=== PATIENT | female | born 1980 | race Two or more races ===

== ENCOUNTER 2016-08-05 17:46 | Inpatient (IN) | payer MEDICAID ==
[~2016-08-05] VITALS: Ht 162.6 cm; Wt 111.6 kg
[~2016-08-05 17:46] MED LIST: ATI0.5 PO; CIPRO500 MG PO; LEXAPRO10 MG PO; NAPROXEN500 MG PO
[2016-08-05 20:10] LABS: PLATELET COUNT 335 x10^3mcL (130-400)
[2016-08-05 20:14] LABS: RED CELL DISTRIBUTION WIDTH 17.7 % (11.5-14.5)
[2016-08-05 20:27] LABS: CALCIUM 8.8 mg/dL (8.5-10.1); CARBON DIOXIDE 29.7 mmol/L (21-32); CHLORIDE SERUM 104 mmol/L (98-107); CREATININE SERUM 0.6 mg/dL (0.6-1.0); GFR1 > 60 mL/min; GLUCOSE SERUM 131 mg/dL (74-106); POTASSIUM SERUM 3.5 mmol/L (3.5-5.1); SODIUM SERUM 139 mmol/L (136-145)
[2016-08-05 20:32] LABS: ALBUMIN 3.1 g/dL (3.4-5.0); ALKALINE PHOSPHATASE 83 U/L (46-116); ALT/SGPT 17 U/L (14-59); AST/SGOT 10 U/L (15-37); BILIRUBIN TOTAL 0.2 mg/dL (0.20-1.00); MAGNESIUM 1.9 mg/dL (1.8-2.4); TOTAL PROTEIN, SERUM 7.1 g/dL (6.4-8.2)
[2016-08-05 21:38] LABS: MONOCYTE 6 % (0-7); PLATELET MORPHOLOGY PLATELETS NORMAL; SEGMENTED NEUTROPHILS 68 % (37-75)
[2016-08-05 21:40] VITALS: BP 124/60
[2016-08-05 23:19] LABS: T3 TOTAL 1.19 ng/mL
[2016-08-05 23:32] LABS: PHOSPHOROUS 4.4 mg/dL (2.5-4.9)
[2016-08-05 23:37] LABS: CHOLESTEROL/HDL RATIO 2.4
[2016-08-05 23:46] LABS: FREE T4 1.04 ng/dL (0.76-1.46); FREE THYROXINE INDEX 2.4 ug/dL (1.4-4.5); T4(THYROXINE) 7.6 ug/dL (4.7-13.3)
[2016-08-06 05:20] VITALS: BP 100/68
[2016-08-06 06:22] LABS: CALCIUM 8.8 mg/dL (8.5-10.1); CARBON DIOXIDE 26.8 mmol/L (21-32); CHLORIDE SERUM 110 mmol/L (98-107); CREATININE SERUM 0.6 mg/dL (0.6-1.0); GFR1 > 60 mL/min; GLUCOSE SERUM 95 mg/dL (74-106); POTASSIUM SERUM 4.7 mmol/L (3.5-5.1); SODIUM SERUM 144 mmol/L (136-145)
[2016-08-06 06:26] LABS: BASOPHIL % 0.2 % (0-2); PLATELET COUNT 303 x10^3mcL (130-400)
[2016-08-06 06:38] LABS: RED CELL DISTRIBUTION WIDTH 17.9 % (11.5-14.5)
[2016-08-06 06:39] LABS: rbc morphology (normal/abnorm) ABNORMAL (NORMAL)
[2016-08-06 07:37] LABS: TOTAL IRON BINDING CAPACITY 342 ug/dL (250-450)
[2016-08-06 07:38] LABS: RED BLOOD CELLS 4.44 M/mm3 (4.10-5.10)
[2016-08-06 07:39] LABS: IRON 27 ug/dL (50-170)
[2016-08-06 09:28] VITALS: BP 90/57
[2016-08-06 13:11] VITALS: BP 110/76
[2016-08-06 16:57] VITALS: BP 112/76
[2016-08-06 21:29] VITALS: BP 127/49; BP 130/64
[2016-08-06 22:55] LABS: UA SPECIFIC GRAVITY 1.025 (1.005-1.035); microscopic required? YES; urine erythrocyte NEGATIVE (NEGATIVE)
[2016-08-07 06:00] VITALS: BP 104/53
[2016-08-07] MEDS ORDERED: CIPRO500 MG PO (07:29)
[2016-08-07] MEDS ORDERED: LAC PO (07:29)
[2016-08-07] MEDS ORDERED: PHARMASSURE VI500 MG PO (07:34)
[2016-08-07] MEDS ORDERED: FERROUS SULFAT325 M2 PO (07:35)
[2016-08-07] MEDS ORDERED: PEPCID20 MG PO (07:36)
[2016-08-07] MEDS ORDERED: IBUPROFEN400 MG PO (07:40)
[2016-08-07] MEDS ORDERED: XANAX0.25 MG PO (07:47)
[2016-08-07 09:39] VITALS: BP 100/64
[2016-08-07] MEDS ORDERED: DIF100 PO (09:56)
[2016-08-07 10:38] VITALS: BP 100/64
== END 2016-08-07 11:49 | disposition home or self-care (01) | DRG 203 ==
LOC: ED 17:46 → DU 20:53
PROVIDERS: Emergency Medicine; ADMIT Family Medicine
DX: M94.0 Chondrocostal junction syndrome [Tietze] (principal); N17.0 Acute kidney failure with tubular necrosis; N39.0 Urinary tract infection, site not specified; F41.9 Anxiety disorder, unspecified; E44.0 Moderate protein-calorie malnutrition; D50.9 Iron deficiency anemia, unspecified; E66.01 Morbid (severe) obesity due to excess calories; Z68.41 Body mass index [BMI] 40.0-44.9, adult
CPT/HCPCS: 80307; 83880; 84439; C9113; J0696; J2060; J2270; J7030; Q0092

== ENCOUNTER 2017-03-03 20:25 | Emergency (ER) | payer MEDICAID ==
[~2017-03-03 20:25] MED LIST changes: +DIF100 PO; +FERROUS SULFAT325 M2 PO; +IBUPROFEN400 MG PO; +LAC PO; +PEPCID20 MG PO; +PHARMASSURE VI500 MG PO; +XANAX0.25 MG PO
[2017-03-03 23:12] VITALS: BP 117/77
== END 2017-03-03 23:01 | disposition home or self-care (01) ==
LOC: ED 20:25
DX: G43.909 Migraine, unspecified, not intractable, without status migrainosus (principal)
CPT/HCPCS: J1200; J2765; J3490; J7030

== ENCOUNTER 2019-01-03 20:15 | Inpatient (IN) | payer OTHER ==
[~2019-01-03] VITALS: Ht 160 cm; Wt 107.1 kg
[2019-01-03 20:19] VITALS: Ht 160 cm; Wt 107.1 kg
--- NOTE | 2019-01-03 20:21 | NUR ---
EKG IN PROGRESS IN TRIAGE
[2019-01-03 21:19] LABS: BASOPHIL % 0.4 % (0-2); PLATELET COUNT 296 x10^3mcL (130-400)
[2019-01-03 21:22] LABS: RED CELL DISTRIBUTION WIDTH 19.3 % (11.5-14.5)
[2019-01-03 21:25] LABS: CALCIUM 8.5 mg/dL (8.5-10.1); CARBON DIOXIDE 24.3 mmol/L (21-32); CHLORIDE SERUM 104 mmol/L (98-107); CREATININE SERUM 0.8 mg/dL (0.6-1.0); GFR1 > 60 mL/min; GLUCOSE SERUM 107 mg/dL (74-106); POTASSIUM SERUM 3.7 mmol/L (3.5-5.1); SODIUM SERUM 142 mmol/L (136-145)
[2019-01-03 21:29] LABS: ALKALINE PHOSPHATASE 58 U/L (46-116); ALT/SGPT 14 U/L (14-59); AST/SGOT 7 U/L (15-37); BILIRUBIN TOTAL 0.2 mg/dL (0.20-1.00); TOTAL PROTEIN, SERUM 7.3 g/dL (6.4-8.2)
[2019-01-03 21:30] LABS: ALBUMIN 3.2 g/dL (3.4-5.0)
--- NOTE | 2019-01-03 21:48 | NUR ---
PT PRESENTS TO ED WITH C/O MID CHEST PAIN 9/10 PRESSURE LIKE RADIATING TO LEFT SIDE OF UPPER BACK AREA THAT STARTED LAST NIGHT WITH DIZZINESS. DENIES ANY N/V. DENIES ANY TRAUMA. PTS RESPS E/U ON ROOM AIR. VITAL SIGNS STABLE. PT IS A/O X4, SPEECH CLEAR AND APPROPRIATE. PLACED ON FULL CM. WILL CONTINUE TO MONITOR.
[2019-01-03 23:39] LABS: UA SPECIFIC GRAVITY 1.015 (1.005-1.035); microscopic required? YES; urine erythrocyte 3+ (NEGATIVE)
--- NOTE | 2019-01-03 23:44 | NUR ---
REPORT GIVEN TO ANJALI RN TO ASSUME CARE
[2019-01-03 23:47] LABS: PHOSPHOROUS 4.4 mg/dL (2.5-4.9)
[2019-01-04 00:24] LABS: AMPHETAMINE QUAL UR NONE DETECTED (See below)
[2019-01-04 00:28] VITALS: BP 100/72
--- NOTE | 2019-01-04 00:31 | NUR ---
RECEIVED PT FROM ED VIA ANUJ. ORIENTED PT TO ROOM AND SURROUNDINGS. IV NOTED TO LAC PATENT AND INTACT. TELE 5 PLACED ON PT READING NSR. INSTRUCTED PT ON THE USE OF CALL LIGHT FOR ASSISTANCE. ENDORSED PT TO PRIMARY NURSE ANJALI
--- NOTE | 2019-01-04 00:45 | NUR ---
RECIEVED PT FROM SURU RN IN NO ACUTE DISTRESS. AOX4. TELE #5, SR. BREATHING E/U. SL TO LAC. ORIENTED TO ROOM, BED IN LOWEST POSITION, 2 SIDE RAILS UP, CALL LIGHT IN REACH. INSTRUCTED TO CALL FOR ASSISTANCE.
[2019-01-04 05:05] VITALS: BP 99/50
--- NOTE | 2019-01-04 05:27 | NUR ---
PT C/O CHEST "PRESSURE" AND HEADACHE. MEDICATED WITH TYLENOL PER EMAR, DR. CAMARENA NOTIFIED VIA [facility] REGARDING CHEST PRESSURE.
--- NOTE | 2019-01-04 07:30 | NUR ---
PT ENDORSE TO ME THIS MORNING, AA/O X4, BREATHING EVEN AND UNLABORED ON 2L NC/ DENIES ANY SOB. TELE 5 SR/ DENIES ANY CP OR PRESSUE, BOWEL SOUNDS ACTIVE IN ALL FOUR QUADS/ LAST BM 01/03 PER PT. REMAINS NPO. VOIDS FREELY, ABM. IV TO THE LAC INTACT AND PATENTT, NO REDNESS OR SWELLING NOTED. CALL LIGHT IN REACH. BED IN LOW POSITION/ FAMILY AT BEDSIDE. WILL CONTINUE TO MONITOR.
[2019-01-04 09:00] VITALS: BP 92/62
--- NOTE | 2019-01-04 09:57 | NUR ---
PT BEING TAKEN TO GI LAB FOR EGD, BREATHING EVEN AND UNLABORED ON RA, NO ACUTE RESP DISTRESS OR SOB NOTED. WILL CONTINUE TO MONITOR WHEN PT RETURNS TO FLOOR.
[2019-01-04 11:50] VITALS: BP 101/66
--- NOTE | 2019-01-04 12:11 | NUR ---
PT BACK FROM GI LAB, VS 101/66 73 MAP, HR 79, RESP 16, 98 % RA, NO ACUTE RESP DISTRESS OR SOB NOTED. DENIES ANY ABD PAIN OR DISCOMFORT AT THIS TIME. FAMILY AT BEDSIDE. MEDICAL TEAM AT BEDSIDE GOING OVER PLAN WITH PT AND DAUGHTER.
[2019-01-04 16:35] VITALS: BP 110/69
--- NOTE | 2019-01-04 18:37 | NUR ---
NO ACUTE CHANGES AT THIS TIME, STARTED BOWEL PREP. DENIES ANY CP OR PRESSURE. WILL ENDORSE TO INCOMING RN.
--- NOTE | 2019-01-04 19:15 | NUR ---
RECEIVED PT FROM PREVIOUS SHIFT NURSE. PT AOX4. DENIES CP/PRESSURE. TELE #5, ST, [id number]. DENIES CP/PRESSURE. DENIES SOB/DIFFICULTY BREATHING, ON RA. IV TO LAC, INTACT AND PATENT. BED IN LOWEST POSITION. CALL LIGHT WITHIN REACH. WILL CONTINUE TO MONITOR.
[2019-01-04 19:23] VITALS: BP 110/80
--- NOTE | 2019-01-05 03:14 | NUR ---
PT REFUSED SECOND ROUND OF BOWEL PREP. VISUALIZED BM, IT IS CLEAR.
[2019-01-05 05:06] VITALS: BP 99/63
--- NOTE | 2019-01-05 05:33 | NUR ---
PT WOULD LIKE A DR TO SPEAK TO HER BEFORE COLONOSCOPY AND BEFORE SIGNING CONSENT. DR. HOLLOWAY NOTIFIED.
[2019-01-05 07:21] LABS: BASOPHIL % 0.6 % (0-2); PLATELET COUNT 251 x10^3mcL (130-400)
--- NOTE | 2019-01-05 07:30 | NUR ---
RECEIVED PATIENT RESTING IN BED, FAMILY AT BEDSIDE. PATIENT IS A/O4, DENIES HEADACHE. TELE MONITOR IN PLACE. DENIES SOB, ON ROOM AIR. PATIENT HAD BOWEL PREP DONE LAST NIGHT, STATES HER LAST STOOL WAS CLEAR. PATIENT IS CURRENTLY MENSTRUATING, DENIES ABOMINAL PAIN. IV TOR TO LAC, CDI & NO S/S OF INFILTRATION. CALL LIGHT WITHIN REACH, BED IN LOW POSITION, WILL CONTINUE TO MONITOR PATIENT.
[2019-01-05 07:39] LABS: CHLORIDE SERUM 106 mmol/L (98-107); CREATININE SERUM 0.6 mg/dL (0.6-1.0); GFR1 > 60 mL/min; GLUCOSE SERUM 90 mg/dL (74-106); POTASSIUM SERUM 3.7 mmol/L (3.5-5.1); SODIUM SERUM 142 mmol/L (136-145)
[2019-01-05 07:48] LABS: RED CELL DISTRIBUTION WIDTH 19.1 % (11.5-14.5)
--- NOTE | 2019-01-05 08:20 | NUR ---
PATIENT HAD QUESTIONS AND CONCERNS, REGARDING POC. FANG CABRALES AT BEDISED UPDATING PATIENT WITH POC. ALL QUESTIONS AND CONCERNS ADDRESSED, WILL CONTINUE TO MONITOR PATIENT.
[2019-01-05 08:40] VITALS: BP 96/59
--- NOTE | 2019-01-05 09:50 | NUR ---
PATIENT WENT DOWN FOR COLONOSCOPY, VIA GURNEY. IV TO LAC, SALINE LOCK. TELE MONITOR REMOVED AND GIVEN TO PRISONER CLASSIFICATION INTERVIEWER. WILL FOLLOW UP WITH GI LAB.
[2019-01-05 12:56] VITALS: BP 94/56
--- NOTE | 2019-01-05 13:07 | NUR ---
PATIENT ARRIVED FROM GI LAB VIA GURNEY. TELE MONITOR IN PLACE. PATIENT C/O ABDOMINAL PAIN 10/16, MEDICATED PATIENT WITH NORCO PER PROTOCOL (SEE EMAR), REPOSITIONED PATIENT FOR COMFORT. BP:94/56 HR:67 RR:15 MAP:72 TEMP:97.2. CALL LIGHT WITHIN REACH, BED IN LOW POSITION, WILL CONTINUE TO MONITOR.
--- NOTE | 2019-01-05 16:30 | NUR ---
PROVIDED PATIENT WITH WASHCLOTHS, NEW GOWN &SOCKS. PATIENT DENIES PAIN AT THIS TIME. NO ACUTE DISTRESS NOTED. ALL NEEDS MET AT THIS TIME. CALL LIGHT WITHIN REACH, BED IN LOW POSITION, WILL CONTINUE TO MONITOR.
[2019-01-05 16:45] VITALS: BP 92/58
--- NOTE | 2019-01-05 18:20 | NUR ---
PATIENT RESTING IN BED, CONVERSING WITH FAMILY. PATIENT DENIES PAIN. NO ACUTE CHANGES NOTED THROUGHOUT SHIFT, PATIENT IS STABLE. PATIENT DENIES HEADACHE, DIZZINESS. IV TO LAC SALINE LOCK, NO S/S OF INFILTRATION. CALL LIGHT WITHIN REACH, BED IN LOW POSITION, WILL CONTINUE TO MONITOR AND ENDORSE REPORT TO NIGHT NURSE.
--- NOTE | 2019-01-05 19:30 | NUR ---
PT RECIEVED FROM DAY NURSE. PT RESTING IN BED AT THIS TIME. FAMILY AT BEDSIDE. A/O X4, CALM AND COOPERATIVE. MS. DENIES CP, NV, DIZZINESS, AND PALPATATIONS. PALPABLE PULSES, NO EDEMA NOTED. BREATHING E/U ON RA. ABD SOFT AND ROUND. DENIES PAIN TO PALPATION. AMBULATORY AT BASELINE. LAC IV CDI. BED AT LOWEST POSITION. CALL LIGHT WITHIN REACH. WILL CONTINUE TO MONITOR.
--- NOTE | 2019-01-05 19:40 | NUR ---
RECIEVED PT FROM DAY NURSE. PT RESTING IN BED COMFORTABLY AT THIS TIME. DENIES PAIN OR DISCOMFORT AT THIS TIME. A/OX4 CALM AND COOPERATIVE AT THIS. BREATHING E/U ON RA. PT M/S, DENIES CP, NV, DIZZINESS, OR PALPATION. ABD SOFT AND ROUND. DENIES PAIN TO PALPATION. AMBULATORY WITH CANE AT BEDSIDE. FABIEN IV, INTACT AND INFUSING. BED AT LOWEST POSITION. CALL LIGHT WITHIN REACH. WILL CONTINUE TO MONITOR.
[2019-01-05 20:25] VITALS: BP 97/59
--- NOTE | 2019-01-06 00:37 | NUR ---
PT RESTING IN BED AT THIS TIME. NO S/S OF PAIN OR DISCOMFORT AT THIS TIME. BREATHING E/U AT THIS TIME. NO S/S OF ACUTE DISTRESS NOTED. BED AT LOWEST POSITION, CALL LIGHT WITHIN REACH, WILL CONTINUE TO MONITOR.
[2019-01-06 05:44] VITALS: BP 91/63
--- NOTE | 2019-01-06 05:57 | NUR ---
PT RESTING COMFORTABLY AT THIS TIME. DENIES ANY PAIN OR DISTRESS AT THIS TIME. BREATHING E/U ON RA. NO ACUTE EVENTS OVERNIGHT. PT STATED SHE WOULD LIKE TO SPEAK TO AN ATTENDING BREFORE DISCHARGE. WILL ENDORSE TO DAY NURSE.
[2019-01-06 06:33] LABS: BASOPHIL % 0.4 % (0-2); PLATELET COUNT 273 x10^3mcL (130-400)
[2019-01-06 06:56] LABS: CALCIUM 7.7 mg/dL (8.5-10.1); CHLORIDE SERUM 108 mmol/L (98-107); CREATININE SERUM 0.6 mg/dL (0.6-1.0); GFR1 > 60 mL/min; GLUCOSE SERUM 101 mg/dL (74-106); POTASSIUM SERUM 4.2 mmol/L (3.5-5.1); SODIUM SERUM 141 mmol/L (136-145)
[2019-01-06 07:00] LABS: RED CELL DISTRIBUTION WIDTH 19.7 % (11.5-14.5)
--- NOTE | 2019-01-06 07:16 | NUR ---
ASSUMED CARE OF PATIENT. SEEN RESTING THIS MORNING WITH EQUAL AND UNLABORED RESPIRATIONS. NO APPARENT DISTRESS NOTED. IV TO LAC SALINE LOCKED. FAMILY AT BEDSIDE. WILL CONITNUE TO MONITOR.
--- NOTE | 2019-01-06 08:09 | NUR ---
PATIENT ENDORSING MENSTRUAL CRAMPS, REQUESTING MEDICATION, PRN TYLENOL PROVIDED.
[2019-01-06 08:11] VITALS: BP 92/65
[2019-01-06] MEDS ORDERED: FER300 PO (08:59)
[2019-01-06] MEDS ORDERED: PRI20 PO (09:01)
[2019-01-06] MEDS ORDERED: LACTULOSE10 GM/152 PO (09:03)
[2019-01-06 09:12] VITALS: BP 92/65
--- NOTE | 2019-01-06 09:44 | NUR ---
DISCHARGE PAPERWORK AND INSTRUCTION PROVIDED. NO APPARENT DISTRESS OR DISCOMFORT NOTED UPON DISCHARGE. NO COMPLAINTS OF PAIN. IV REMOVED WITH CATHTER INTACT. ID BAND REMOVED. LEFT WITH ALL BELONGINGS AND DAUGHTER AT SIDE.
== END 2019-01-06 09:45 | disposition home or self-care (01) | DRG 241 ==
LOC: ED 20:15 → DU 23:14 → MU 23:14 → DU 01-04 00:06 → MU 01-05 14:47
PROVIDERS: Emergency Medicine; Internal Medicine; Internal Medicine Gastroenterology; ADMIT Internal Medicine
PROC: 0DB98ZX Excision of Duodenum, Via Natural or Artificial Opening Endoscopic, Diagnostic (ICD-10-PCS; principal; 2019-01-04 11:00)
PROC: 0DB68ZX Excision of Stomach, Via Natural or Artificial Opening Endoscopic, Diagnostic (ICD-10-PCS; 2019-01-04 11:00)
PROC: 0DJD8ZZ Inspection of Lower Intestinal Tract, Via Natural or Artificial Opening Endoscopic (ICD-10-PCS; 2019-01-05)
DX: K29.60 Other gastritis without bleeding (principal); E44.1 Mild protein-calorie malnutrition; K21.9 Gastro-esophageal reflux disease without esophagitis; D50.9 Iron deficiency anemia, unspecified; M94.0 Chondrocostal junction syndrome [Tietze]; E66.9 Obesity, unspecified; Z68.38 Body mass index [BMI] 38.0-38.9, adult
CPT/HCPCS: 43235; 45378; 83880; G0378; J1200; J1610; J2250; J2270; J2310; J3010; J3490; Q0092